=== PATIENT | female | born 1990 | race Caucasian/White ===

== ENCOUNTER 2018-12-02 10:44 | Emergency (ER) | payer OTHER ==
[2018-12-02 10:50] VITALS: BP 119/68; PULSE 79; TEMP 98.2; BMI 27.8
--- NOTE | 2018-12-02 11:51 | PDOC ---
History of Present Illness - General Chief Complaint: Pain Stated Complaint: 6WKS/ PELVIC PAIN Time Seen by Provider: 12/02/18 11:16 History Source: Patient Exam Limitations: No Limitations - History of Present Illness Initial Comments: 12/02/18 11:54 28 yo female G3, P0 (2 abortions, D&C, 5 years ago) currently 6 weeks , pmh of UTIs and ovarian cysts presents to the ED with 2 weeks of intermittent RLQ pain and 3 days of NB/NB vomiting. Pt states the pain began suddenly 2 weeks ago, described as sharp and crampy RLQ pain without radiation. States the pain is worse at night and when lying down, no correlation to food or physical activity. Pt states pain reminds her of when she had a ruptured ovarian cyst on the right, spoke with [facility] TH[facility] at [facility] and told to go to the ER. Pt denies F /C, back pain, changes in bowel habits, eating and drinking well, CP, SOB. Last transvag US 2 weeks ago, does not know results Past History - Past Medical History Allergies/Adverse Reactions: Allergies Allergy/AdvReac Type Severity Reaction Status Date / Time No Known Allergies Allergy Verified 12/02/18 12:02 Home Medications: Ambulatory Orders Albuterol Sulfate Inhaler - [Ventolin HFA Inhaler -] 1 - 2 inh PO Q4H PRN Formula Tablet 0 mg PO DAILY 12/02/18 Asthma: Yes COPD: No Liver Disease: No Thyroid Disease: No - Reproductive History Is Patient Now?: Yes (#): 1 Para: 0 Spontaneous : 0 - Suicide/Smoking/Psychosocial Hx Smoking History: Never smoked Have you smoked in the past 12 months: No Information on smoking cessation initiated: No Hx Alcohol Use: No Drug/Substance Use Hx: No Substance Use Type: Alcohol Review of Systems - Review of Systems Constitutional: No: Chills, Fever, Loss of Appetite Respiratory: No: Shortness of Breath Cardiac (ROS): No: Chest Pain ABD/GI: Yes: Nausea, Vomiting (NB/NB total of 3 episodes over the last 3 days), Abdominal cramping (RLQ). No: Constipated, Diarrhea : No: Dysuria, Discharge, Frequency, Flank Pain, Hematuria, Incontinence Musculoskeletal: No: Back Pain Integumentary: No: Change in Color Neurological: No: Headache, Numbness, Paresthesia *Physical Exam - Vital Signs Last Vital Signs Temp Pulse Resp BP Pulse Ox 98.2 F 79 18 119/68 100 12/02/18 10:47 12/02/18 10:47 12/02/18 10:47 12/02/18 10:47 12/02/18 10:47 - Physical Exam General Appearance: Yes: Nourished, Appropriately Dressed. No: Apparent Distress HEENT: positive: EOMI Neck: positive: Supple Respiratory/Chest: positive: Lungs Clear, Normal Breath Sounds. negative: Crackles, Rales, Rhonchi, Stridor, Wheezing Cardiovascular: positive: Regular Rhythm, Regular Rate, S1, S2. negative: Edema , JVD, Murmur Vascular Pulses: Dorsalis-Pedis (R): 4+, Doralis-Pedis (L): 4+ Female Pelvic Exam: positive: normal external exam, cervical os closed, normal adnexa, normal size ovaries, other (field organizer RN gerald bowen). negative: CMT , discharge, lesions, Bartholin mass, adnexal tenderness, vaginal bleeding Gastrointestinal/Abdominal: positive: Normal Bowel Sounds, Flat, Soft, Tenderness (RLQ with deep palpation, pain is distractable). negative: Distended , Guarding, Rebound Musculoskeletal: positive: Normal Inspection. negative: CVA Tenderness Extremity: positive: Normal Capillary Refill, Normal Inspection Integumentary: positive: Normal Color, Dry, Warm Neurologic: positive: Fully Oriented, Alert, Normal Mood/Affect ED Treatment Course - LABORATORY CBC & Chemistry Diagram: 12/02/18 12:15 12/02/18 12:15 Medical Decision Making - Medical Decision Making 12/02/18 14:26 28 yo female G3, P0 (2 abortions, D&C, 5 years ago) currently 6 weeks , pmh of UTIs and ovarian cysts presents to the ED with 2 weeks of intermittent RLQ pain and 3 days of NB/NB vomiting. Pt states the pain began suddenly 2 weeks ago, described as sharp and crampy RLQ pain without radiation. States the pain is worse at night and when lying down, no correlation to food or physical activity. Pt states pain reminds her of when she had a ruptured ovarian cyst on the right, spoke with SPEECH THERAPIST at [facility] and told to go to the ER. Pt denies F /C, back pain, changes in bowel habits, eating and drinking well, CP, SOB. Last transvag US 2 weeks ago, does not know results Vitals WNL NAD, non toxic appearing, ambulating without difficulty, appears comfortable, no active pain while in the ED DDX INLT: ectopic preg, ovarian torsion, ovarian rupture, *DC/Admit/Observation/Transfer Diagnosis at time of Disposition: Abdominal pain during Qualifiers: Trimester: first trimester Qualified Code(s): O26.891 - Other specified related conditions, first trimester - Discharge Dispostion Disposition: HOME Condition at time of disposition: Stable - Referrals Referrals: Shelley Christian MD [Primary Care Provider] - - Patient Instructions Printed Discharge Instructions: DI for Abdominal Pain -- Early Additional Instructions: Please see your Primary Doctor and [employer]ER Doctor within the next 48 hours. Take over the counter Tylenol for pain as directed on the packaging and as needed. You must return to the ER for new or concerning symptoms including but not limited to: high fevers, inability to eat or drink, severe abdominal pain. Thank you - Post Discharge Activity
[2018-12-02 12:33] LABS: BASO % 0.6 % (0-2.0); HEMATOCRIT 37.9 % (32.4-45.2); HEMOGLOBIN 12.5 GM/dL (10.7-15.3); LYMPH % 13.8 % (8-40); MCH 30.9 pg (25.7-33.7); MEAN CELL VOLUME 93.6 fl (80-96); MEAN PLT VOLUME 8.4 fl (7.5-11.1); MONO % 6.9 % (3.8-10.2); NEUT % 75.7 % (42.8-82.8); PLATELET COUNT 275 K/MM3 (134-434); RBC 4.04 M/mm3 (3.60-5.2); RDW 13.3 % (11.6-15.6); WHITE BLOOD COUNT 10.4 K/mm3 (4.0-10.0)
[2018-12-02 12:34] LABS: URINE APPEARANCE CLEAR; URINE BILIRUBIN NEGATIVE (NEGATIVE); URINE COLOR YELLOW; URINE GLUCOSE (UA) NEGATIVE (NEGATIVE); URINE KETONE TRACE (NEGATIVE); URINE LEUK ESTERASE NEGATIVE (NEGATIVE); URINE NITRITE NEGATIVE (NEGATIVE); URINE PROTEIN TRACE (NEGATIVE)
--- NOTE | 2018-12-02 13:12 | PDOC ---
Documentation entered by Heavenly Rain SCRIBE, acting as scribe for Michelle Syed MD. Michelle Syed MD: This documentation has been prepared by the maria dibe, Heavenly Rain SCRIBE, under my direction and personally reviewed by me in its entirety. I confirm that the documentation accurately reflects all work, treatment, procedures, and medical decision making performed by me. Attending Attestation - Resident Resident Name: Denny Tim - ED Attending Attestation I have performed the following: I have examined & evaluated the patient, The case was reviewed & discussed with the resident, I agree w/resident's findings & plan, Exceptions are as noted - HPI HPI: 12/02/18 12:44 The patient is a 28 year old female (), 6 weeks , with a significant past medical history of anxiety, asthma, frequent UTIs, and a ruptured ovarian cyst who presents to the emergency department with RLQ pain for 2 weeks. The patient describes her RLQ pain as sharp, intermittent, non radiating and waxing and waning when it comes. She states that it feels crampy and is worsened at night when lying down. The patient states that she contacted her OB recently regarding her symptoms by when she was told that her last US 2 weeks ago was normal and she did not need to have another US. the patient reports that her current pain and symptoms feel similar to when she had her ruptured cyst in the past. The patient denies any other symptoms.she denies any vaginal bleeding or discharge. She denies any fever, chills, nausea, vomiting, diarrhea, constipation or urinary symptoms. She denies any headache, chest pain , shortness of breath or dizziness. - Physicial Exam PE: GENERAL: Awake, alert, and fully oriented, in no acute distress HEAD: No signs of trauma EYES: PERRLA, EOMI, sclera anicteric, conjunctiva clear ENT: Auricles normal inspection, hearing grossly normal, nares patent, oropharynx clear without exudates. Moist mucosa NECK: Normal ROM, supple, no lymphadenopathy, JVD, or masses LUNGS: Breath sounds equal, clear to auscultation bilaterally. No wheezes, and no crackles HEART: Regular rate and rhythm, normal S1 and S2, no murmurs, rubs or gallops ABDOMEN: Soft, +mild RLQ tenderness, normoactive bowel sounds. No guarding, no rebound. No masses EXTREMITIES: Normal range of motion, no edema. No clubbing or cyanosis. No cords, erythema, or tenderness NEUROLOGICAL: Cranial nerves II through XII grossly intact. Normal speech, normal gait. Motor and sensation intact SKIN: Warm, Dry, normal turgor, no rashes or lesions noted. - Medical Decision Making Pt 6 WGA with no prior ultrasound, presenting with RLQ pain. She has history of ovarian cysts in the past with similar pain. Will obtain ultrasound to r/o ectopic as the most concerning diagnosis.
[2018-12-02 13:53] LABS: ALBUMIN 3.6 g/dl (3.4-5.0); BILIRUBIN,TOTAL 0.2 mg/dL (0.2-1); CALCIUM 9.1 mg/dL (8.5-10.1); CREATININE 0.7 mg/dL (0.55-1.3); POTASSIUM 4.1 mmol/L (3.5-5.1); TOT PROT 6.8 g/dl (6.4-8.2)
== END 2018-12-02 14:12 | disposition home or self-care (01) ==
LOC: JER 10:44
DX: O26.891 Other specified pregnancy related conditions, first trimester (principal); R10.31 Right lower quadrant pain; Z3A.01 Less than 8 weeks gestation of pregnancy
CPT/HCPCS: 36415; 76817-TC; 80053; 81003; 84702; 85025; 87086; 99283-25

== ENCOUNTER 2019-03-03 19:56 | Emergency (ER) | payer OTHER ==
--- NOTE | 2019-03-03 19:58 | PDOC ---
Rapid Medical Evaluation Time Seen by Provider: 03/03/19 19:57 Medical Evaluation: Allergies Allergy/AdvReac Type Severity Reaction Status Date / Time No Known Allergies Allergy Verified 12/02/18 12:02 03/03/19 19:57 I have performed a brief exam on this patient. CC: abdominal pain 19 wks PE: Gravid abdomen Orders: urine, labs The patient will proceed to the ER for further evaluation. Discharge Disposition - Diagnosis Abdominal pain during - Referrals - Patient Instructions - Post Discharge Activity
[2019-03-03 20:41] VITALS: BP 115/65; PULSE 83; TEMP 97.2; BMI 26.5
--- NOTE | 2019-03-03 21:52 | PDOC ---
History of Present Illness - General Chief Complaint: Pain Stated Complaint: ABDOMINAL PAIN (19) WEEKS Time Seen by Provider: 03/03/19 19:57 History Source: Patient - History of Present Illness Initial Comments: 03/03/19 22:33 19 weeks pregannat female c/o left groin pain worse with movement. Patient reports that the pain is worse with movement. Patient also reports slight dysuria. Denies flank pain, left lower quadrant pain, vaginal discharge, nausea , vomiting, fevers/chills. Patient reports that she was moving 2 days ago unsure if she full the muscle. Patient also reports that she is constipated and had not have a bowel movement in 2 days. Patient is passing flatus. Past History - Past Medical History Allergies/Adverse Reactions: Allergies Allergy/AdvReac Type Severity Reaction Status Date / Time No Known Allergies Allergy Verified 12/02/18 12:02 Home Medications: Ambulatory Orders Albuterol Sulfate Inhaler - [Ventolin HFA Inhaler -] 1 - 2 inh PO Q4H PRN Formula Tablet 0 mg PO DAILY 12/02/18 Asthma: Yes COPD: No Liver Disease: No Thyroid Disease: No - Reproductive History (#): 1 Para: 0 Spontaneous : 0 - Suicide/Smoking/Psychosocial Hx Smoking History: Never smoked Have you smoked in the past 12 months: No Hx Alcohol Use: Yes (OCCASIONALLY) Drug/Substance Use Hx: No Substance Use Type: Alcohol Review of Systems - Review of Systems Able to Perform ROS?: Yes Is the patient limited Brazilian proficient: No Constitutional: No: Symptoms Reported, See HPI, Chills, Diaphoresis, Fever, Loss of Appetite, Malaise, Night Sweats, Weakness, Weight Stable, Unintentional Wgt. Loss, Unexplained wgt Loss, Other : Yes: Other (pelvic cramping/ denies vaginal bleeding) *Physical Exam - Vital Signs Last Vital Signs Temp Pulse Resp BP Pulse Ox 97.2 F L 83 20 115/65 97 03/03/19 20:30 03/03/19 20:30 03/03/19 20:30 03/03/19 20:30 03/03/19 20:30 - Physical Exam General Appearance: Yes: Appropriately Dressed Female Pelvic Exam: positive: normal external exam Gastrointestinal/Abdominal: positive: Normal Bowel Sounds, Soft. negative: Tender Musculoskeletal: positive: Normal Inspection. negative: CVA Tenderness Extremity: positive: Normal Capillary Refill, Normal Inspection, Normal Range of Motion ED Treatment Course - LABORATORY CBC & Chemistry Diagram: 03/03/19 21:40 03/03/19 21:40 Progress Note - Progress Note Progress Note: A: pelvic pain; musculoskeletal pain P: cbc cmp ua *DC/Admit/Observation/Transfer Diagnosis at time of Disposition: Musculoskeletal pain, Pelvic pain - Discharge Dispostion Disposition: HOME - Referrals Referrals: Shelley Christian MD [Primary Care Provider] - - Patient Instructions Printed Discharge Instructions: DI for Musculoskeletal Pain Additional Instructions: take tylenol every 6 hours as needed for pain do light stretches. follow up with your doctor as soon as possible. return to the ER if you are soaking 2 pads per hour, severe abdominal pain, or worsening symptoms. - Post Discharge Activity
[2019-03-03 22:05] LABS: BASO % 0.2 % (0-2.0); EOS % 3.1 % (0-4.5); HEMATOCRIT 33.7 % (32.4-45.2); HEMOGLOBIN 11.4 GM/dL (10.7-15.3); LYMPH % 20.6 % (8-40); MCH 31.1 pg (25.7-33.7); MCHC 33.9 g/dl (32.0-36.0); MEAN CELL VOLUME 91.7 fl (80-96); MEAN PLT VOLUME 7.9 fl (7.5-11.1); MONO % 6.9 % (3.8-10.2); NEUT % 69.2 % (42.8-82.8); PLATELET COUNT 326 K/MM3 (134-434); RBC 3.67 M/mm3 (3.60-5.2); RDW 13.1 % (11.6-15.6); WHITE BLOOD COUNT 11.3 K/mm3 (4.0-10.0)
[2019-03-03 22:09] LABS: PH,URINE 6.5 (5.0-8.0); URINE APPEARANCE CLEAR; URINE BILIRUBIN NEGATIVE (NEGATIVE); URINE COLOR YELLOW; URINE GLUCOSE (UA) NEGATIVE (NEGATIVE); URINE KETONE NEGATIVE (NEGATIVE); URINE LEUK ESTERASE NEGATIVE (NEGATIVE); URINE NITRITE NEGATIVE (NEGATIVE); URINE PROTEIN NEGATIVE (NEGATIVE)
--- NOTE | 2019-03-03 22:11 | PDOC ---
*Physical Exam - Vital Signs Last Vital Signs Temp Pulse Resp BP Pulse Ox 97.2 F L 83 20 115/65 97 03/03/19 20:30 03/03/19 20:30 03/03/19 20:30 03/03/19 20:30 03/03/19 20:30 ED Treatment Course - LABORATORY CBC & Chemistry Diagram: 03/03/19 21:40 03/03/19 21:40 - ADDITIONAL ORDERS Additional order review: Laboratory Results 03/03/19 21:40 Urine Color Yellow Urine Appearance Clear Urine pH 6.5 Ur Specific [place] 1.022 Urine Protein Negative Urine Glucose (UA) Negative Urine Ketones Negative Urine Blood Negative Urine Nitrite Negative Urine Bilirubin Negative Urine Urobilinogen 1.0 Ur Leukocyte Esterase Negative Medical Decision Making - Medical Decision Making 03/03/19 22:28 29 yo F currently 19 weeks 4 days who presents to the ER with a complaint of left groin pain Pt has been some urinary symptoms No fevers or chills No flank pain Will do: Basic labs UA US Re assess Likely Round ligament pain 03/03/19 22:30 Laboratory Tests 03/03/19 03/03/19 03/03/19 21:40 21:40 21:40 WBC 11.3 H Hgb 11.4 Hct 33.7 Plt Count 326 BUN 9.7 Creatinine 0.6 Lipase 157 Urine Blood Urine Nitrite Ur Leukocyte Esterase 03/03/19 21:40 WBC Hgb Hct Plt Count BUN Creatinine Lipase Urine Blood Negative Urine Nitrite Negative Ur Leukocyte Esterase Negative *DC/Admit/Observation/Transfer Diagnosis at time of Disposition: Abdominal pain during - Referrals Referrals: Shelley Christian MD [Primary Care Provider] - - Patient Instructions - Post Discharge Activity
[2019-03-03 22:26] LABS: BILIRUBIN,TOTAL 0.1 mg/dL (0.2-1); BLOOD UREA NITROGEN 9.7 mg/dL (7-18); CALCIUM 8.6 mg/dL (8.5-10.1); CREATININE 0.6 mg/dL (0.55-1.3); POTASSIUM 4.1 mmol/L (3.5-5.1); TOT PROT 6.4 g/dl (6.4-8.2)
[2019-03-03] MEDS ORDERED: ACETAMINOPHEN 325 MG TABLET (FP) PO ONE (23:34)
[2019-03-03] MEDS ORDERED: ACETAMINOPHEN 325 MG TABLET (FP) ONE (23:36)
== END 2019-03-03 23:57 | disposition home or self-care (01) ==
LOC: JER 19:56
DX: O26.892 Other specified pregnancy related conditions, second trimester (principal); Z3A.19 19 weeks gestation of pregnancy; R10.9 Unspecified abdominal pain
CPT/HCPCS: 36415; 76815; 80053; 81003; 83690; 84702; 85025; 87086; 99283-25